=== PATIENT | male | born 1965 | race Caucasian/White ===

== ENCOUNTER 2023-11-13 08:51 | Outpatient (CLI) | payer BC | END 2023-11-13 08:52 | disposition home or self-care (01) | LOC: BICRAD 08:51 | PROVIDERS: ATTEND Family Medicine | DX: R05.9 Cough, unspecified (principal); J34.89 Other specified disorders of nose and nasal sinuses | CPT/HCPCS: 70220; 71046 ==

== ENCOUNTER 2024-11-01 07:14 | Outpatient (CLI) | payer BC | END 2024-11-01 07:15 | disposition home or self-care (01) | LOC: BICULT 07:14 | PROVIDERS: ATTEND Internal Medicine Nephrology | DX: E11.9 Type 2 diabetes mellitus without complications (principal); I10 Essential (primary) hypertension; I25.10 Atherosclerotic heart disease of native coronary artery without angina pectoris; E78.5 Hyperlipidemia, unspecified; E87.1 Hypo-osmolality and hyponatremia; G47.9 Sleep disorder, unspecified; E55.9 Vitamin D deficiency, unspecified; F41.1 Generalized anxiety disorder; F32.A Depression, unspecified; R31.9 Hematuria, unspecified; R39.12 Poor urinary stream; R68.82 Decreased libido | CPT/HCPCS: 76770; 93975 ==